=== PATIENT | female | born 1985 | race Caucasian/White ===

== ENCOUNTER 2022-07-13 01:30 | Emergency (ER) | payer OTHER ==
[~2022-07-13 01:30] MED LIST: MEDROL DOSEPAK4 MG PO
== END 2022-07-13 03:18 | disposition home or self-care (01) ==
LOC: ED 01:30
DX: S61.411A Laceration without foreign body of right hand, initial encounter (principal); W25.XXXA Contact with sharp glass, initial encounter; Y93.71 Activity, boxing; Y92.89 Other specified places as the place of occurrence of the external cause; Y99.8 Other external cause status

== ENCOUNTER 2022-07-26 20:21 | Emergency (ER) | payer OTHER ==
[~2022-07-26] VITALS: Ht 167.6 cm; Wt 74.8 kg
[2022-07-26] MEDS ORDERED: SEPTDS PO (21:00)
== END 2022-07-26 21:11 | disposition home or self-care (01) ==
LOC: ED 20:21
DX: S61.411D Laceration without foreign body of right hand, subsequent encounter (principal); X58.XXXD Exposure to other specified factors, subsequent encounter

== ENCOUNTER 2024-02-28 18:13 | Inpatient (IN) | payer SELFPAY ==
[~2024-02-28] VITALS: Ht 167.6 cm; Wt 84.0 kg
[~2024-02-28 18:13] MED LIST changes: +SEPTDS PO
[2024-02-28 18:27] VITALS: BP 109/55
[2024-02-28] MEDS ORDERED: Midazolam Hydrochloride 5 MG/ML VIAL INH ONE (18:30)
[2024-02-28 18:42] LABS: BASO % 0.2 % (0.0-1.0); HEMATOCRIT 28.7 % (37.0-47.0); LYMPH # 1.3 10*3/uL (1.3-4.4); LYMPH % 11.3 % (27.0-41.0); MEAN CELL VOLUME 82.9 fl (81.0-99.0); MEAN CORPUSCULAR HGB 27.2 pg (27.0-31.0); MEAN CORPUSCULAR HGB CONC 32.8 g/dl (33.0-37.0); MEAN PLATELET VOLUME 8.6 fl (9.6-12.3); MONO # 0.4 10*3/uL (0.1-1.0); MONO % 3.6 % (3.0-9.0); NEUT % 84.6 % (47.0-73.0); PLATELET COUNT AUTOMATED 336 10*3/uL (130-400); RED BLOOD COUNT 3.46 10*6/uL (4.10-5.10); RED CELL DISTRI WIDTH 12.5 % (0-14.5); WHITE BLOOD COUNT 11.9 10*3/uL (4.8-10.8)
[2024-02-28 18:53] LABS: BILIRUBIN Negative (Negative); BLOOD Negative (Negative); CLARITY Clear (Clear); COLOR Yellow (Yellow); GLUCOSE Negative (Negative); KETONE 1+ (Negative); LEUKO ESTERASE Negative (Negative); NITRITE Negative (Negative); SPECIFIC GRAVITY 1.015 (1.001-1.030); UROBILINOGEN 0.2 E.U./dl (0.0-1.0)
[2024-02-28 18:54] LABS: ACT PARTIAL THROMBO TIME 23.7 SECONDS (20.0-32.1)
[2024-02-28 19:00] LABS: BACTERIA TRACE; HYALINE CAST 0-2; RBC 0-2 rbc/hpf (0-2); WBC 0-2 wbc/hpf (0-5)
[2024-02-28 19:01] LABS: URINE AMPHETAMINES Negative (1000ng/ml); URINE BARBITURATES Negative (200ng/ml); URINE BENZODIAZEPINES Negative (200ng/ml); URINE CANNABINOIDS (THC) Negative (50ng/ml); URINE COCAINE Negative (300ng/ml); URINE METHADONE Negative (300ng/ml); URINE OPIATES Negative (300ng/ml); URINE PHENCYCLIDINE Negative (25ng/ml)
[2024-02-28 19:05] LABS: ALKALINE PHOSPHATASE 64 U/L (46-116); BUN 6 mg/dl (9-23); CHLORIDE 91 mmol/L (98-107); CPK 226 U/L (34-171); LIPASE 27 U/L (12-53); POTASSIUM 3.7 mmol/L (3.4-5.1); SGPT/ALT 11 U/L (5-49); TOTAL PROTEIN 6.8 gm/dL (6.0-8.0)
[2024-02-28 19:11] LABS: ETHYL ALCOHOL < 3.0 mg/dl (<3)
[2024-02-28] MEDS ORDERED: SODIUM CHLORIDE 0.9% 1,000 ML IV ONE (19:15)
[2024-02-28] MEDS ORDERED: LORazepam 2 MG/ML VIAL IV ONE ×3 (19:25→23:00)
[2024-02-28] MEDS ORDERED: LORazepam 2 MG/ML VIAL ONE (19:34)
[2024-02-28] MEDS ORDERED: MAGNESIUM SULFATE 50 ML IV ONE (19:55)
[2024-02-28] MEDS ORDERED: Ondansetron Hydrochloride 4 MG/2 ML VIAL IV ONE (20:20)
[2024-02-28 23:49] LABS: BUN 6 mg/dl (9-23); CHLORIDE 87 mmol/L (98-107); POTASSIUM 4.1 mmol/L (3.4-5.1)
[2024-02-29] VITALS (11 sets, daily range): BP systolic 100–132; BP diastolic 60–79
[2024-02-29] MEDS ORDERED: LORazepam 2 MG/ML VIAL IV ONE (00:55)
[2024-02-29] MEDS ORDERED: DIAZEPAM 10 MG/2 ML SYR IV ONE ×2 (01:20→02:20)
[2024-02-29 01:56] LABS: BUN 5 mg/dl (9-23); CHLORIDE 88 mmol/L (98-107); POTASSIUM 3.7 mmol/L (3.4-5.1)
[2024-02-29] MEDS ORDERED: DIAZEPAM 2 ML IV ONE (02:33)
[2024-02-29] MEDS ORDERED: MORPHINE Sulfate 2 MG/ML SYR IV PRN (03:00)
[2024-02-29] MEDS ORDERED: Ondansetron Hydrochloride 4 MG/2 ML VIAL IV PRN (03:00)
[2024-02-29] MEDS ORDERED: ACETAMINOPHEN 325 MG TAB PO PRN (03:00)
[2024-02-29] MEDS ORDERED: TEMAZEPAM 15 MG CAP PO PRN (03:00)
[2024-02-29] MEDS ORDERED: ACETAMINOPHEN 650 MG SUPP R PRN (03:00)
[2024-02-29] MEDS ORDERED: BISACODYL 10 MG SUPP R PRN (03:00)
[2024-02-29] MEDS ORDERED: BISACODYL 5 MG TAB PO PRN (03:00)
[2024-02-29] MEDS ORDERED: Magnesium Hydroxide 30 ML UDC PO PRN (03:00)
[2024-02-29] MEDS ORDERED: BUPROPION HYDR150 M1 PO (03:34)
[2024-02-29] MEDS ORDERED: LEVOTHYROXINE200 MC2 PO (03:34)
[2024-02-29 04:50] LABS: ACT PARTIAL THROMBO TIME 27.3 SECONDS (20.0-32.1)
[2024-02-29 05:04] LABS: ALKALINE PHOSPHATASE 71 U/L (46-116); BUN 5 mg/dl (9-23); CHLORIDE 87 mmol/L (98-107); CHOLESTEROL 165 mg/dL (<200); FREE T4 1.25 ng/dl (0.89-1.76); LDL CHOLESTEROL 79 mg/dL (9-159); POTASSIUM 4.1 mmol/L (3.4-5.1); SGPT/ALT 20 U/L (5-49); TOTAL PROTEIN 7.2 gm/dL (6.0-8.0); TRIGLYCERIDES 55 mg/dl (<150)
[2024-02-29] MEDS ORDERED: diphenhydrAMINE hydrochloride 50 MG/ML VIAL IV ONE (05:40)
[2024-02-29 06:21] LABS: BASO % 0.1 % (0.0-1.0); EOS % 0.1 % (1.0-4.0); LYMPH # 1.1 10*3/uL (1.3-4.4); LYMPH % 6.5 % (27.0-41.0); MEAN CORPUSCULAR HGB 27.3 pg (27.0-31.0); MEAN CORPUSCULAR HGB CONC 34.3 g/dl (33.0-37.0); MEAN PLATELET VOLUME 9.4 fl (9.6-12.3); MONO # 1.3 10*3/uL (0.1-1.0); MONO % 7.8 % (3.0-9.0); NEUT % 85.2 % (47.0-73.0); PLATELET COUNT AUTOMATED 422 10*3/uL (130-400); RED BLOOD COUNT 3.77 10*6/uL (4.10-5.10); RED CELL DISTRI WIDTH 12.6 % (0-14.5); WHITE BLOOD COUNT 16.4 10*3/uL (4.8-10.8)
[2024-02-29 06:24] LABS: MEAN CELL VOLUME 79.6 fl (81.0-99.0)
[2024-02-29] MEDS ORDERED: Midazolam Hydrochloride 5 MG/5 ML VIAL IV ONE (08:45)
[2024-02-29] MEDS ORDERED: DEXMEDETOMIDINE IN 0.9 % NACL 100 ML IV SCH (08:50)
[2024-02-29] MEDS ORDERED: Enoxaparin Sodium 40 MG/0.4 ML SYR SC SCH (10:00)
[2024-02-29] MEDS ORDERED: SODIUM CHLORIDE IV ONE (10:10)
[2024-02-29 10:17] LABS: ALKALINE PHOSPHATASE 68 U/L (46-116); CHLORIDE 98 mmol/L (98-107); SGPT/ALT 32 U/L (5-49); TOTAL PROTEIN 7.3 gm/dL (6.0-8.0)
[2024-02-29 10:19] LABS: BUN < 5 mg/dl (9-23)
[2024-02-29 12:12] LABS: BUN 5 mg/dl (9-23); CHLORIDE 97 mmol/L (98-107); POTASSIUM 3.7 mmol/L (3.4-5.1)
[2024-02-29 13:53] LABS: CHLORIDE 101 mmol/L (98-107); POTASSIUM 4.2 mmol/L (3.4-5.1)
[2024-02-29 13:54] LABS: BUN < 5 mg/dl (9-23)
[2024-02-29] MEDS ORDERED: DEXTROSE 5% 1,000 ML IV SCH ×2 (15:15→22:10)
[2024-02-29 16:24] LABS: BUN 6 mg/dl (9-23); CHLORIDE 104 mmol/L (98-107); POTASSIUM 3.8 mmol/L (3.4-5.1)
[2024-02-29 18:01] LABS: BUN 7 mg/dl (9-23); CHLORIDE 103 mmol/L (98-107); POTASSIUM 3.9 mmol/L (3.4-5.1)
[2024-02-29 19:57] LABS: BUN 6 mg/dl (9-23); CHLORIDE 105 mmol/L (98-107); POTASSIUM 3.8 mmol/L (3.4-5.1)
[2024-02-29 21:54] LABS: BUN 8 mg/dl (9-23); CHLORIDE 104 mmol/L (98-107); POTASSIUM 3.6 mmol/L (3.4-5.1)
[2024-02-29 23:49] LABS: BUN 8 mg/dl (9-23); CHLORIDE 104 mmol/L (98-107); POTASSIUM 3.5 mmol/L (3.4-5.1)
[2024-03-01] VITALS (8 sets, daily range): BP systolic 90–120; BP diastolic 52–81
[2024-03-01 01:46] LABS: BUN 6 mg/dl (9-23); CHLORIDE 104 mmol/L (98-107); POTASSIUM 3.8 mmol/L (3.4-5.1)
[2024-03-01 04:11] LABS: BUN 7 mg/dl (9-23); CHLORIDE 105 mmol/L (98-107); POTASSIUM 4.4 mmol/L (3.4-5.1)
[2024-03-01 06:17] LABS: BUN 7 mg/dl (9-23); CHLORIDE 106 mmol/L (98-107); POTASSIUM 4.4 mmol/L (3.4-5.1)
[2024-03-01 07:48] LABS: BUN 7 mg/dl (9-23); CHLORIDE 103 mmol/L (98-107); POTASSIUM 3.7 mmol/L (3.4-5.1)
[2024-03-01 09:53] LABS: ALKALINE PHOSPHATASE 64 U/L (46-116); BUN 9 mg/dl (9-23); CHLORIDE 101 mmol/L (98-107); POTASSIUM 3.9 mmol/L (3.4-5.1); SGPT/ALT 59 U/L (5-49); TOTAL PROTEIN 6.9 gm/dL (6.0-8.0)
[2024-03-01 13:56] LABS: BUN 8 mg/dl (9-23); CHLORIDE 102 mmol/L (98-107); POTASSIUM 3.8 mmol/L (3.4-5.1)
[2024-03-01 17:57] LABS: BUN 8 mg/dl (9-23); CHLORIDE 99 mmol/L (98-107)
[2024-03-01 21:49] LABS: BUN 6 mg/dl (9-23); CHLORIDE 102 mmol/L (98-107); POTASSIUM 3.2 mmol/L (3.4-5.1)
[2024-03-02] VITALS: BP 102/66
[2024-03-02 02:16] LABS: BUN 5 mg/dl (9-23); CHLORIDE 101 mmol/L (98-107); POTASSIUM 3.2 mmol/L (3.4-5.1)
[2024-03-02] MEDS ORDERED: POTASSIUM CHLORIDE IN WATER 100 ML IV SCH (03:00)
[2024-03-02 04:00] VITALS: BP 116/60
[2024-03-02 06:56] LABS: ALKALINE PHOSPHATASE 64 U/L (46-116); CHLORIDE 102 mmol/L (98-107); POTASSIUM 3.7 mmol/L (3.4-5.1); SGPT/ALT 87 U/L (5-49); TOTAL PROTEIN 6.9 gm/dL (6.0-8.0)
[2024-03-02 07:01] LABS: BUN < 5 mg/dl (9-23)
[2024-03-02 08:00] VITALS: BP 128/79
[2024-03-02 12:00] VITALS: BP 122/80
[2024-03-02 12:25] LABS: CHLORIDE 105 mmol/L (98-107); POTASSIUM 3.9 mmol/L (3.4-5.1)
[2024-03-02 12:26] LABS: BUN < 5 mg/dl (9-23)
[2024-03-02 16:00] VITALS: BP 110/73
[2024-03-02 20:00] VITALS: BP 113/77
[2024-03-02 20:22] LABS: BUN < 5 mg/dl (9-23); CHLORIDE 107 mmol/L (98-107); POTASSIUM 3.7 mmol/L (3.4-5.1)
[2024-03-03] VITALS: BP 115/70
[2024-03-03 00:52] LABS: BUN 6 mg/dl (9-23); CHLORIDE 106 mmol/L (98-107); POTASSIUM 3.4 mmol/L (3.4-5.1)
[2024-03-03 04:00] VITALS: BP 115/77
[2024-03-03 05:07] LABS: HBSAG Negative (Negative); HEP B CORE AB, IGM Negative (Negative); HEPATITIS C ANTIBODY Non Reactive (Non Reactive)
[2024-03-03 05:47] LABS: ALKALINE PHOSPHATASE 56 U/L (46-116); BUN 5 mg/dl (9-23); CHLORIDE 106 mmol/L (98-107); POTASSIUM 3.8 mmol/L (3.4-5.1); SGPT/ALT 87 U/L (5-49); TOTAL PROTEIN 6.6 gm/dL (6.0-8.0)
[2024-03-03 08:00] VITALS: BP 115/81
[2024-03-03 10:35] LABS: BUN 6 mg/dl (9-23); CHLORIDE 105 mmol/L (98-107); POTASSIUM 3.8 mmol/L (3.4-5.1)
[2024-03-03 14:36] LABS: BUN 7 mg/dl (9-23); CHLORIDE 104 mmol/L (98-107); POTASSIUM 3.8 mmol/L (3.4-5.1)
== END 2024-03-03 14:50 | disposition home or self-care (01) | DRG 641 ==
LOC: ED 18:13 → EDHOLD 02-29 02:57 → ICCU 02-29 02:57
PROVIDERS: Internal Medicine; Nurse Practitioner Family; Student in an Organized Health Care Education/Training Program; ADMIT Internal Medicine; ATTEND Internal Medicine
DX: E87.1 Hypo-osmolality and hyponatremia (principal); E87.20 Acidosis, unspecified; E87.6 Hypokalemia; E83.42 Hypomagnesemia; D64.9 Anemia, unspecified; F41.9 Anxiety disorder, unspecified; E03.9 Hypothyroidism, unspecified; R73.9 Hyperglycemia, unspecified; D72.829 Elevated white blood cell count, unspecified; E28.2 Polycystic ovarian syndrome; R74.01 Elevation of levels of liver transaminase levels; Z98.84 Bariatric surgery status